=== PATIENT | female | born 1945 | race American Indian/Alaskan Native ===

== ENCOUNTER 2021-12-26 08:14 | Outpatient (CLI) | payer MEDICARE ==
--- NOTE | 2021-12-26 13:08 | Vascular Lab Report ---
ULTRASOUND RENAL ARTERY DUPLEX IMAGING INDICATION / CLINICAL INFORMATION: R09.89 OTHER SPECIFIED SIGNS INVOLVING THE CIRCULATORY/RES SYSTEM. COMPARISON: None available. FINDINGS: RIGHT KIDNEY: Size = 8.8 cm. - Echogenicity: Normal. - Cortical thickness: Normal. - Hydronephrosis: None. - Cyst / Mass: None. - Stones: None seen.. - Renal resistive indices (RI): 0.8, not calculated., 0.7 (Normal < 0.70) - Renal/aortic ratio (RAR): 1.0 (Normal < 3.5) LEFT KIDNEY: Size = 8.7 cm. - Echogenicity: Normal. - Cortical thickness: Normal. - Hydronephrosis: None. - Cyst / Mass: None. - Stones: None seen.. - Renal resistive indices (RI): 0.8, not calculated., 0.8 (Normal < 0.70) - Renal/aortic ratio (RAR): 0.9 (Normal < 3.5) URINARY BLADDER: Not imaged. FREE FLUID: None. ADDITIONAL FINDINGS: The aorta appears patent with velocities ranging from 127-133 cm/s. The celiac a xis appears patent with mildly elevated velocity measuring 205 cm/s. The superior mesenteric artery a ppears patent with elevated velocity measuring 312 cm/s IMPRESSION 1. No significant abnormality of the kidneys. 2. No sonographic evidence for renal artery stenosis. 3. Elevated velocities within the celiac axis and superior mesenteric artery. CTA of the abdomen is s uggested for further evaluation. Scribed by: Alie Mejias RDMS, RVT Scribed: 12/26/2021 11:23 AM I have reviewed the images, agree with this report, and edited this report as needed. Signer Name: Willi Watt MD Signed: 12/26/2021 1:03 PM Workstation Name: [employer]
== END 2021-12-26 08:15 | disposition home or self-care (01) ==
LOC: VAS 08:14
PROVIDERS: ATTEND Surgery Vascular Surgery
DX: R09.89 Other specified symptoms and signs involving the circulatory and respiratory systems (principal)
CPT/HCPCS: 93975